=== PATIENT | female | born 1950 | race Caucasian/White ===

== ENCOUNTER 2023-04-30 04:53 | Day surgery (SDC) | payer OTHER ==
[~2023-04-30] VITALS: Ht 167.6 cm; Wt 117.9 kg
[2023-04-30] MEDS ORDERED: CEFAZOLIN SOD 2 GM in D5W 50 ML IV ONE (05:00)
[2023-04-30] MEDS ORDERED: VANCOMYCIN HCL 1,500 MG in NS 250 ML IV ONE (05:00)
[2023-04-30] MEDS ORDERED: CELECOXIB 100 MG CAPSULE ONE (05:12)
[2023-04-30] MEDS ORDERED: GABAPENTIN 300 MG CAPSULE ONE (05:13)
[2023-04-30] MEDS ORDERED: oxyCODONE HCL 10 MG TAB.ER.12H PO ONE ×2 (05:13→06:00)
[2023-04-30] MEDS ORDERED: ACETAMINOPHEN 500 MG TABLET ONE (05:13)
[2023-04-30] MEDS ORDERED: ONDANSETRON 4 MG ODT TAB PO ONE (06:00)
[2023-04-30] MEDS ORDERED: SCOPOLAMINE HYDROBROMIDE 1 MG PATCH .72 H (TRANSDERM-SCOP) TD ONE ×2 (06:00→06:21)
[2023-04-30] MEDS ORDERED: CELECOXIB 100 MG CAPSULE PO ONE (06:00)
[2023-04-30] MEDS ORDERED: GABAPENTIN 300 MG CAPSULE PO ONE (06:00)
[2023-04-30] MEDS ORDERED: ACETAMINOPHEN 500 MG TABLET PO ONE (06:00)
[2023-04-30] MEDS ORDERED: LR 1,000 ML IV.SOLN IV ONE (07:27)
[2023-04-30] MEDS ORDERED: DEXAMETHASONE SOD PHOSPHATE 4 MG/ML VIAL ONE (07:27)
[2023-04-30] MEDS ORDERED: PROPOFOL 200MG/ 20ML VIAL (DIPRIVAN) IV ONE (07:27)
[2023-04-30] MEDS ORDERED: KETOROLAC TROMETHAMINE 30 MG VIAL ONE (07:27)
[2023-04-30] MEDS ORDERED: SEVOFLURANE 15 MIN GAS INH ONE (07:27)
[2023-04-30] MEDS ORDERED: TRANEXAMIC ACID 1,000 MG/10 ML VIAL ONE (07:27)
[2023-04-30] MEDS ORDERED: WATER FOR IRRIGATION,STERILE 1,000 ML IRRIG.SOLN IR ONE (07:27)
[2023-04-30] MEDS ORDERED: NS 1000 ML IV.SOLN IV ONE ×2 (07:27)
[2023-04-30] MEDS ORDERED: EPINEPHRINE HCL/PF 1 MG/ML AMP ONE (07:27)
[2023-04-30] MEDS ORDERED: VANCOMYCIN HCL 1000 MG/VIAL IV ONE (07:27)
[2023-04-30] MEDS ORDERED: ACETAMINOPHEN I.V. 1000 MG 100 ML IV ONE ×2 (09:15→09:29)
[2023-04-30] MEDS ORDERED: METOCLOPRAMIDE HCL 10 MG/2 ML VIAL IVP PRN (09:15)
[2023-04-30] MEDS ORDERED: KETOROLAC TROMETHAMINE 30 MG VIAL IVP PRN (09:15)
[2023-04-30] MEDS ORDERED: HYDROmorphone 1 MG/ML INJ. CARTRIDGE IVP PRN (09:15)
[2023-04-30] MEDS ORDERED: ONDANSETRON HCL 4 MG/2 ML VIAL IVP PRN ×2 (09:15→10:00)
[2023-04-30] MEDS ORDERED: HYDROcodone/ACETAMIN 7.5-325 MG TAB PO PRN (10:00)
[2023-04-30] MEDS ORDERED: HYDROcodone/ACETAMIN 5-325 MG TAB (NORCO/ VICODIN) PO PRN (10:00)
[2023-04-30 11:45] VITALS: O2SAT 98
[2023-04-30 11:49] VITALS: BP_SYST 118; PULSE 59; RESP 19; TEMP 96
[2023-04-30 12:06] VITALS: BP_SYST 104; PULSE 56; RESP 16; TEMP 96.9; O2SAT 99
[2023-04-30] MEDS ORDERED: CEFAZOLIN 1 GM IVPB PREMIX 50 ML IV SCH (14:00)
[2023-04-30 16:00] VITALS: BP_SYST 128; PULSE 60; RESP 16; TEMP 97.2; O2SAT 97
[2023-04-30 17:53] VITALS: BP_SYST 121; PULSE 62; RESP 16; TEMP 98.4; O2SAT 94
== END 2023-04-30 19:05 | disposition home or self-care (01) ==
LOC: SMU 04:53 → SDS 04:53 → SMU 11:25 → SDS 19:05
PROVIDERS: ATTEND Orthopaedic Surgery
DX: M17.0 Bilateral primary osteoarthritis of knee (principal); K21.9 Gastro-esophageal reflux disease without esophagitis; J45.909 Unspecified asthma, uncomplicated; I12.9 Hypertensive chronic kidney disease with stage 1 through stage 4 chronic kidney disease, or unspecified chronic kidney disease; N18.30 Chronic kidney disease, stage 3 unspecified; E78.00 Pure hypercholesterolemia, unspecified; M85.80 Other specified disorders of bone density and structure, unspecified site; E66.01 Morbid (severe) obesity due to excess calories; Z90.710 Acquired absence of both cervix and uterus; Z68.41 Body mass index [BMI] 40.0-44.9, adult; Z79.899 Other long term (current) drug therapy
CPT/HCPCS: 87081; 27447; 97162; 64447; 86886; 86900; 86901; 36415; 73560; 97110; 97530; 97116; 88305; 88311; Q0162; J3370 ×2; J0690 ×2; J1100; J0171; J1885; J2704; J3490; J7060; J7120; J7050; J7030; C1713 ×2; C1776; J0131